=== PATIENT | male | born 1985 | race African-American/Black ===

== ENCOUNTER 2018-02-27 14:38 | Inpatient (IN) | payer BC ==
[2018-02-27 17:48] VITALS: BMI 28.0
--- NOTE | 2018-02-27 21:22 | HP ---
Admission ROS [facility] - [facility] Chief Complaint: SEEKING INPATIENT REHAB SERVICES FOR CRACK/COCAINE DEPENDENCE Allergies/Adverse Reactions: Allergies Allergy/AdvReac Type Severity Reaction Status Date / Time No Known Allergies Allergy Verified 02/27/18 18:34 History of Present Illness: 32 Y.O. MALE WITH LONG HX/O CRACK/COCAINE DEPENDENCE HERE FOR REHAB SERVICES. CLIENT WAS REFERRED BY HIS OUTPATIENT PROGRAM, [facility]. DENIES ANY SIGNIFICANT PERIOD OF CLEAN TIME. REPORT PMHX OF SEIZURE D/O, SCHIZOPHRENIC D/O. DENIES ANY PAST/PRESENT SI/HI/AV HALLUCINATIONS Exam Limitations: No Limitations - Ebola screening Have you traveled outside of the country in the last 21 days: No (N) Have you had contact with anyone from an Ebola affected area: No Have you been sick,other than usual withdrawal symptoms: No Do you have a fever: No - Review of Systems Constitutional: No Symptoms Reported EENT: reports: No Symptoms Reported Respiratory: reports: No Symptoms reported Cardiac: reports: No Symptoms Reported GI: reports: No Symptoms Reported : reports: No Symptoms Reported Musculoskeletal: reports: No Symptoms Reported Integumentary: reports: No Symptoms Reported Neuro: reports: Seizure Endocrine: reports: No Symptoms Reported Hematology: reports: No Symptoms Reported Psychiatric: reports: Depressed, other (SCHIZOPHRENIA) Other Systems: Reviewed and Negative Patient History - Patient Medical History Hx Anemia: No Hx Asthma: No Hx Chronic Obstructive Pulmonary Disease (COPD): No Hx Cancer: No Hx Cardiac Disorders: No Hx Congestive Heart Failure: No Hx Hypertension: No Hx Hypercholesterolemia: No Hx Pacemaker: No HX Cerebrovascular Accident: No Hx Seizures: Yes (ON MEDS) Hx Dementia: No Hx Diabetes: No Hx Gastrointestinal Disorders: No Hx Liver Disease: No Hx Genitourinary Disorders: No Hx Sexually Transmitted Disorders: No Hx Renal Disease (ESRD): No Hx Thyroid Disease: No Hx Human Immunodeficiency Virus (HIV): No Hx Hepatitis C: No Hx Depression: No Hx Suicide Attempt: No Hx Bipolar Disorder: No Hx Schizophrenia: Yes Other Medical History: DENIES - Patient Surgical History Past Surgical History: No - PPD History Previous Implant?: Yes Documented Results: Negative w/proof Implanted On Prior [facility] Admission?: No PPD to be Administered?: Yes - Smoking Cessation Smoking history: Current every day smoker Have you smoked in the past 12 months: Yes Aproximately how many cigarettes per day: 4 Cigars Per Day: 0 Hx Chewing Tobacco Use: No Initiated information on smoking cessation: Yes 'Breaking Loose' booklet given: 02/27/18 - Substance & Tx. History Hx Alcohol Use: No Hx Substance Use: No Substance Use Type: Cocaine Hx Substance Use Treatment: No - Substances Abused CRACK/COCAINE Route: Smoking Frequency: Daily Amount used: $60 Age of first use: 31 Date of Last Use: 02/25/18 Family Disease History - Family Disease History Family Disease History: Respiratory: Father (ASTHMA, COCAINE DEP) Admission Physical Exam [facility] - Vital Signs Vital Signs: Vital Signs - 24 hr 02/27/18 17:47 Temperature 98.6 F Pulse Rate 84 Respiratory 18 Rate Blood Pressure 129/69 - Physical General Appearance: Yes: No Apparent Distress, Appropriately Dressed HEENTM: Yes: EOMI, Normocephalic, Normal Voice, RULA, Pharynx Normal Respiratory: Yes: Chest Non-Tender, Lungs Clear, Normal Breath Sounds, No Respiratory Distress, No Accessory Muscle Use Neck: Yes: No masses,lesions,Nodules, Supple, Trachea in good position Breast: Yes: Breast Exam Deferred Cardiology: Yes: Regular Rhythm, Regular Rate, S1, S2 Abdominal: Yes: Normal Bowel Sounds, Non Tender, Flat, Soft Genitourinary: Yes: Within Normal Limits Back: Yes: Normal Inspection Musculoskeletal: Yes: full range of Motion, Gait Steady Extremities: Yes: Normal Capillary Refill, Normal Inspection, Normal Range of Motion, Non-Tender 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 NML intact, Fully Oriented, Alert, Motor Strength 5/5 Integumentary: Yes: Normal Color, Dry, Warm Lymphatic: Yes: Within Normal Limits - Diagnostic (1) Cocaine dependence, uncomplicated Current Visit: Yes Status: Chronic (2) Nicotine dependence Current Visit: Yes Status: Chronic Qualifiers: Nicotine product type: cigarettes Substance use status: uncomplicated Qualified Code(s): F17.210 - Nicotine dependence, cigarettes, uncomplicated (3) Seizure disorder Current Visit: Yes Status: Chronic (4) Depressed mood Current Visit: Yes Status: Suspected Cleared for Admission [facility] - Detox or Rehab Detox Regimen/Protocol: Not Applicable Claeared for Rehab Admission: Yes [facility] Breath Alcohol Content Breath Alcohol Content: 0 Urine Drug Screen - Results Drug Screen Negative: No Urine Drug Screen Results: JAIME-Cocaine, BAR-Barbiturates, TCA-Tricyclic Antidepress Inpatient Rehab Admission - Initial Determination Are CD services needed?: Yes Free of communicable disease: Yes Not in need of hospitalization: Yes - Rehab Admission Criteria Previous failed treatment: Yes Poor recovery environment: Yes Comorbidities: Yes Lacks judgement: Yes Patient is meeting Inpatient Rehab admission criteria:: Yes
[2018-02-27] MEDS ORDERED: guaiFENesin/D-METHORPHAN HB 10 ML UNIT-DOSE CUPS PO PRN (21:34)
[2018-02-27] MEDS ORDERED: NICOTINE POLACRILEX 2 MG GUM BC PRN (21:34)
[2018-02-27] MEDS ORDERED: MAG HYDROX/AL HYDROX/SIMETH 30 ML UNIT-DOSE CUP PO PRN (21:34)
[2018-02-27] MEDS ORDERED: MAGNESIUM CITRATE 300 ML BOTTLE PO PRN (21:34)
[2018-02-27] MEDS ORDERED: P-EPHED 60MG/TRIPROLIDI 2.5MG TABLET PO PRN (21:34)
[2018-02-27] MEDS ORDERED: ACETAMINOPHEN 325 MG TABLET (FP) PO PRN (21:34)
[2018-02-27] MEDS ORDERED: LOPERAMIDE HCL 2 MG CAPSULE PO PRN (21:34)
[2018-02-27] MEDS ORDERED: MENTHOL/PHENOL 1 EACH UD MM PRN (21:34)
[2018-02-27] MEDS ORDERED: hydrOXYzine PAMOATE 50 MG CAPSULE (FP) PO PRN (21:34)
[2018-02-27] MEDS ORDERED: MAGNESIUM HYDROX 2400MG/30ML ORAL SUSPENSION 30 ML CUP PO PRN (21:34)
[2018-02-27] MEDS ORDERED: IBUPROFEN 400 MG TABLET (FP) PO PRN (21:34)
[2018-02-27] MEDS ORDERED: MELATONIN 5 MG TABLETS PO PRN (22:00)
[2018-02-27] MEDS ORDERED: TUBERCULIN PPD 5 TU/0.1ML VIAL ID ONE (23:27)
[2018-02-27] MEDS: carBAMazepine 100 MG TAB.CHEW PO SCH (23:39)
[2018-02-27] MEDS: PHENYTOIN NA EXTENDED 100 MG CAPSULE (FP) PO SCH (23:39)
[2018-02-27] MEDS: THIAMINE HCL 100 MG TABLET (FP) PO SCH (23:39)
[2018-02-27] MEDS: levETIRAcetam XR 500 MG TAB PO SCH (23:39)
[2018-02-28] MEDS: PHENYTOIN NA EXTENDED 100 MG CAPSULE (FP) PO SCH ×3 (07:05→21:35)
[2018-02-28] MEDS: risperiDONE 2 MG TABLET PO SCH ×2 (10:17→21:35)
[2018-02-28] MEDS: PRENATAL VITAMINS W/ FOLIC ACID TABLET (FP) PO SCH (10:17)
[2018-02-28] MEDS: carBAMazepine 100 MG TAB.CHEW PO SCH ×2 (10:18→21:35)
[2018-02-28] MEDS: levETIRAcetam XR 500 MG TAB PO SCH ×2 (10:18→21:35)
[2018-02-28] MEDS: NICOTINE 14 MG/24 HOURS TOPICAL PATCH TD SCH (10:19)
[2018-02-28] MEDS ORDERED: PNEUMOCOCCAL 23 VACCINE 0.5 ML VIAL IM ONE (12:00)
[2018-02-28] MEDS ORDERED: PNEUMOC 13-VAL CONJ-DIP CRM/PF 0.5 ML DISP.SYRIN IM ONE (12:00)
[2018-02-28] MEDS ORDERED: FLU VACCINE QUAD 60 MCG/0.5 ML (MDV 17-18) IM ONE (12:00)
--- NOTE | 2018-02-28 12:17 | HP ---
Psychiatrist Admission - Data Date of interview: 02/28/18 Admission source: [facility] Identifying data: This is the first 5N inpatient rehabilitation admission for this 32 year old AA male father of one, domiciled residing in [place] and supported on PA. Medical History: history of seizures with a last episode weeks ago and is on medication, smokes 4 cigarettes a day. Psychiatric History: Patient is poor historina, he reports history of Schizophrenia and under the care of outpatient program [facility], currently on Risperdal 2 mg po BID. Patient does not gives any details, he reports he is tired and did not sleep well. Vital Signs: Vital Signs - 24 hr 02/27/18 02/27/18 02/28/18 17:47 23:16 06:54 Temperature 98.6 F 97.7 F 97.8 F Pulse Rate 84 73 77 Respiratory 18 18 16 Rate Blood Pressure 129/69 114/71 129/79 Allergies/Adverse Reactions: Allergies Allergy/AdvReac Type Severity Reaction Status Date / Time No Known Allergies Allergy Verified 02/27/18 18:34 Date of last physical exam: 02/27/18 Concur with the findings of this exam: Yes - Substance Abuse/Tx History Hx Alcohol Use: No Hx Substance Use: Yes Substance Use Type: Cocaine ($60 daily ) Hx Substance Use Treatment: Yes Mental Status Exam - Mental Status Exam Alert and Oriented to: Time, Place, Person Cognitive Function: Good Patient Appearance: Well Groomed Mood: Apathetic ( ), Sad Affect: Mood Congruent, Blunted, Constricted Patient Behavior: Fatigued, Cooperative Speech Pattern: Appropriate Voice Loudness: Normal Thought Process: Intact, Goal Oriented Thought Disorder: Not Present Hallucinations: Denies Suicidal Ideation: Denies Homicidal Ideation: Denies Insight/Judgement: Fair Sleep: Fair Appetite: Fair Muscle strength/Tone: Normal Gait/Station: Normal Psychiatric Findings - Problem List ([place] 1, 2,3) (1) Cocaine dependence Current Visit: Yes Status: Acute (2) Schizophrenia Current Visit: Yes Status: Acute (3) Nicotine dependence Current Visit: Yes Status: Chronic Qualifiers: Nicotine product type: cigarettes Substance use status: uncomplicated Qualified Code(s): F17.210 - Nicotine dependence, cigarettes, uncomplicated - Initial Treatment Plan Initial Treatment Plan: will continue his current medications, monitor progress as needed.
--- NOTE | 2018-02-28 15:04 | EKG ---
Test Reason : Blood Pressure : / mmHG Vent. Rate : 055 BPM Atrial Rate : 055 BPM P-R Int : 232 ms QRS Dur : 090 ms QT Int : 408 ms P-R-T Axes : 077 047 037 degrees QTc Int : 390 ms SINUS BRADYCARDIA WITH SINUS ARRHYTHMIA WITH 1ST DEGREE A-V BLOCK OTHERWISE NORMAL ECG NO PREVIOUS ECGS AVAILABLE Confirmed by STANISLAW MENDOZA MD ([id number]) on 02/28/2018 3:04:13 PM Referred By: Confirmed By:STANISLAW MENDOZA MD
[2018-02-28 16:04] LABS: HEMATOCRIT 42.6 % (35.4-49); HEMOGLOBIN 14.2 GM/dL (11.7-16.9); MCH 30.9 pg (25.7-33.7); MCHC 33.4 g/dl (32.0-35.9); MEAN CELL VOLUME 92.5 fl (80-96); MEAN PLT VOLUME 10.1 fl (7.5-11.1); PLATELET COUNT 165 K/MM3 (134-434); RDW 12.4 % (11.9-15.9); WHITE BLOOD COUNT 5.3 K/mm3 (4.0-10.0)
[2018-02-28 16:35] LABS: CHLORIDE 105 mmol/L (98-107); SODIUM 141 mmol/L (136-145)
[2018-02-28 16:57] LABS: ALBUMIN 3.4 g/dl (3.4-5.0); ALK PHOS 90 U/L (45-117); ANION GAP 9 (8-16); BILIRUBIN,TOTAL 1.6 mg/dL (0.2-1.0); BLOOD UREA NITROGEN 10 mg/dL (7-18); CALCIUM 7.8 mg/dL (8.5-10.1); CO2 27 mmol/L (21-32); CREATININE 1.3 mg/dL (0.7-1.3); GLUCOSE,RANDOM 95 mg/dL (74-106); SGPT/ALT 23 U/L (12-78); TOT PROT 6.6 g/dl (6.4-8.2)
[2018-02-28 17:03] LABS: CARBAMAZEPINE (TEGRETOL) 2.3 ug/ml (4.0-12.0); PHENYTOIN (DILANTIN) 6.3 ug/ml (10.0-20.0)
[2018-02-28 18:20] LABS: URINE APPEARANCE TURBID; URINE BILIRUBIN NEGATIVE (<2.0 mg/dL); URINE COLOR AMBER; URINE GLUCOSE (UA) NEGATIVE (NEGATIVE); URINE KETONE NEGATIVE (NEGATIVE); URINE LEUK ESTERASE NEGATIVE (NEGATIVE); URINE NITRITE NEGATIVE (NEGATIVE); URINE PROTEIN NEGATIVE (NEGATIVE); URINE UROBILINOGEN NEGATIVE mg/dL (0.2-1.0)
[2018-02-28 19:06] LABS: POTASSIUM 4.1 mmol/L (3.5-5.1); SGOT/AST 25 U/L (15-37)
[2018-02-28] MEDS: THIAMINE HCL 100 MG TABLET (FP) PO SCH (21:35)
[2018-03-01] MEDS: PHENYTOIN NA EXTENDED 100 MG CAPSULE (FP) PO SCH ×3 (06:23→21:31)
[2018-03-01] MEDS: carBAMazepine 100 MG TAB.CHEW PO SCH ×2 (10:30→21:31)
[2018-03-01] MEDS: PRENATAL VITAMINS W/ FOLIC ACID TABLET (FP) PO SCH (10:30)
[2018-03-01] MEDS: NICOTINE 14 MG/24 HOURS TOPICAL PATCH TD SCH (10:30)
[2018-03-01] MEDS: risperiDONE 2 MG TABLET PO SCH ×2 (10:30→21:31)
[2018-03-01] MEDS: levETIRAcetam XR 500 MG TAB PO SCH ×2 (10:30→21:32)
--- NOTE | 2018-03-01 16:23 | EKG ---
Test Reason : Blood Pressure : / mmHG Vent. Rate : 058 BPM Atrial Rate : 058 BPM P-R Int : 202 ms QRS Dur : 086 ms QT Int : 388 ms P-R-T Axes : 070 043 031 degrees QTc Int : 380 ms SINUS BRADYCARDIA OTHERWISE NORMAL ECG WHEN COMPARED WITH ECG OF 28-FEB-2018 07:43, [place] INTERVAL HAS DECREASED Confirmed by PREMA SWANSON MD ([id number]) on 03/01/2018 4:23:39 PM Referred By: Aileen GARCIA Confirmed By:PREMA SWANSON MD
[2018-03-01] MEDS: THIAMINE HCL 100 MG TABLET (FP) PO SCH (21:31)
[2018-03-02] MEDS: PHENYTOIN NA EXTENDED 100 MG CAPSULE (FP) PO SCH ×3 (06:42→21:31)
[2018-03-02] MEDS: levETIRAcetam XR 500 MG TAB PO SCH ×2 (10:05→21:31)
[2018-03-02] MEDS: PRENATAL VITAMINS W/ FOLIC ACID TABLET (FP) PO SCH (10:05)
[2018-03-02] MEDS: risperiDONE 2 MG TABLET PO SCH ×2 (10:05→21:31)
[2018-03-02] MEDS: NICOTINE 14 MG/24 HOURS TOPICAL PATCH TD SCH (10:06)
[2018-03-02] MEDS: carBAMazepine 100 MG TAB.CHEW PO SCH ×2 (10:07→21:31)
--- NOTE | 2018-03-02 15:34 | PN ---
S Progress Note Note: Notified by RN Tegretol level 2.3 (low). Will continue same dose of Tegretol and repeat level 03/04/18. Continue to monitor.
[2018-03-02] MEDS: THIAMINE HCL 100 MG TABLET (FP) PO SCH (21:31)
[2018-03-03] MEDS: PHENYTOIN NA EXTENDED 100 MG CAPSULE (FP) PO SCH ×3 (06:38→21:50)
[2018-03-03] MEDS: risperiDONE 2 MG TABLET PO SCH ×2 (10:03→21:50)
[2018-03-03] MEDS: levETIRAcetam XR 500 MG TAB PO SCH ×2 (10:03→21:51)
[2018-03-03] MEDS: carBAMazepine 100 MG TAB.CHEW PO SCH ×2 (10:03→21:50)
[2018-03-03] MEDS: PRENATAL VITAMINS W/ FOLIC ACID TABLET (FP) PO SCH (10:03)
[2018-03-03] MEDS: NICOTINE 14 MG/24 HOURS TOPICAL PATCH TD SCH (10:04)
[2018-03-03] MEDS: THIAMINE HCL 100 MG TABLET (FP) PO SCH (21:50)
[2018-03-04] MEDS: PHENYTOIN NA EXTENDED 100 MG CAPSULE (FP) PO SCH ×3 (06:35→21:36)
[2018-03-04] MEDS: risperiDONE 2 MG TABLET PO SCH ×2 (10:06→21:36)
[2018-03-04] MEDS: PRENATAL VITAMINS W/ FOLIC ACID TABLET (FP) PO SCH (10:06)
[2018-03-04] MEDS: NICOTINE 14 MG/24 HOURS TOPICAL PATCH TD SCH (10:06)
[2018-03-04] MEDS: carBAMazepine 100 MG TAB.CHEW PO SCH ×2 (10:06→21:36)
[2018-03-04] MEDS: levETIRAcetam XR 500 MG TAB PO SCH ×2 (10:07→21:37)
[2018-03-04] MEDS: THIAMINE HCL 100 MG TABLET (FP) PO SCH (21:36)
[2018-03-05] MEDS: PHENYTOIN NA EXTENDED 100 MG CAPSULE (FP) PO SCH ×3 (06:20→21:33)
[2018-03-05] MEDS: NICOTINE 14 MG/24 HOURS TOPICAL PATCH TD SCH (10:22)
[2018-03-05] MEDS: levETIRAcetam XR 500 MG TAB PO SCH ×2 (10:22→21:33)
[2018-03-05] MEDS: risperiDONE 2 MG TABLET PO SCH ×2 (10:23→21:33)
[2018-03-05] MEDS: carBAMazepine 100 MG TAB.CHEW PO SCH ×2 (10:23→22:10)
[2018-03-05] MEDS: PRENATAL VITAMINS W/ FOLIC ACID TABLET (FP) PO SCH (10:23)
--- NOTE | 2018-03-05 11:36 | PN ---
[facility] Progress Note Note: Tegretol level increased to 3.4. Mildly subtherapeutic. Will continue same dose and repeat level 03/09/18.
[2018-03-05] MEDS: THIAMINE HCL 100 MG TABLET (FP) PO SCH (21:33)
[2018-03-06] MEDS: PHENYTOIN NA EXTENDED 100 MG CAPSULE (FP) PO SCH ×3 (07:08→21:40)
[2018-03-06] MEDS: carBAMazepine 100 MG TAB.CHEW PO SCH ×2 (10:22→21:40)
[2018-03-06] MEDS: PRENATAL VITAMINS W/ FOLIC ACID TABLET (FP) PO SCH (10:22)
[2018-03-06] MEDS: levETIRAcetam XR 500 MG TAB PO SCH ×2 (10:22→21:41)
[2018-03-06] MEDS: risperiDONE 2 MG TABLET PO SCH ×2 (10:22→21:40)
[2018-03-06] MEDS: NICOTINE 14 MG/24 HOURS TOPICAL PATCH TD SCH (10:23)
[2018-03-06] MEDS: THIAMINE HCL 100 MG TABLET (FP) PO SCH (21:40)
[2018-03-07] MEDS: PHENYTOIN NA EXTENDED 100 MG CAPSULE (FP) PO SCH ×3 (08:03→21:30)
[2018-03-07] MEDS: levETIRAcetam XR 500 MG TAB PO SCH ×2 (10:31→21:31)
[2018-03-07] MEDS: PRENATAL VITAMINS W/ FOLIC ACID TABLET (FP) PO SCH (10:32)
[2018-03-07] MEDS: risperiDONE 2 MG TABLET PO SCH ×2 (10:32→21:30)
[2018-03-07] MEDS: carBAMazepine 100 MG TAB.CHEW PO SCH ×2 (10:32→21:30)
[2018-03-07] MEDS: NICOTINE 14 MG/24 HOURS TOPICAL PATCH TD SCH (10:32)
[2018-03-07] MEDS: THIAMINE HCL 100 MG TABLET (FP) PO SCH (21:30)
[2018-03-08] MEDS: PHENYTOIN NA EXTENDED 100 MG CAPSULE (FP) PO SCH ×3 (06:49→21:38)
[2018-03-08] MEDS: carBAMazepine 100 MG TAB.CHEW PO SCH ×2 (10:28→21:38)
[2018-03-08] MEDS: PRENATAL VITAMINS W/ FOLIC ACID TABLET (FP) PO SCH (10:28)
[2018-03-08] MEDS: NICOTINE 14 MG/24 HOURS TOPICAL PATCH TD SCH (10:28)
[2018-03-08] MEDS: risperiDONE 2 MG TABLET PO SCH ×2 (10:28→21:38)
[2018-03-08] MEDS: levETIRAcetam XR 500 MG TAB PO SCH ×2 (10:28→21:38)
[2018-03-08] MEDS: THIAMINE HCL 100 MG TABLET (FP) PO SCH (21:38)
[2018-03-09] MEDS: PHENYTOIN NA EXTENDED 100 MG CAPSULE (FP) PO SCH ×3 (06:29→21:28)
[2018-03-09] MEDS: levETIRAcetam XR 500 MG TAB PO SCH ×2 (10:09→21:28)
[2018-03-09] MEDS: risperiDONE 2 MG TABLET PO SCH ×2 (10:09→21:28)
[2018-03-09] MEDS: NICOTINE 14 MG/24 HOURS TOPICAL PATCH TD SCH (10:09)
[2018-03-09] MEDS: carBAMazepine 100 MG TAB.CHEW PO SCH ×2 (10:09→21:28)
[2018-03-09] MEDS: PRENATAL VITAMINS W/ FOLIC ACID TABLET (FP) PO SCH (10:09)
[2018-03-09] MEDS: THIAMINE HCL 100 MG TABLET (FP) PO SCH (21:28)
[2018-03-10] MEDS ORDERED: PHENYTOIN NA EXTENDED 100 MG CAPSULE (FP) PO ONE ×2 (06:00→10:30)
[2018-03-10] MEDS: PHENYTOIN NA EXTENDED 100 MG CAPSULE (FP) PO SCH ×3 (07:10→21:41)
--- NOTE | 2018-03-10 07:48 | PN ---
[facility] Progress Note Note: I was called to evaluate patient with muscle cantractions and loss of consciousness. Lorazepam 2mg intramuscular and oxygen at 2 liters per minute via nasal cannula order. Dilantin 300mg loading dose and lab ordered. Patient is stable at this time. No injury noted or reported at this time. Fall and safety precaution maintained. Will continue to monitor patient.
[2018-03-10] MEDS: NICOTINE 14 MG/24 HOURS TOPICAL PATCH TD SCH (10:30)
[2018-03-10] MEDS: risperiDONE 2 MG TABLET PO SCH ×2 (10:30→21:41)
[2018-03-10] MEDS: carBAMazepine 100 MG TAB.CHEW PO SCH ×2 (10:30→21:41)
[2018-03-10] MEDS: PRENATAL VITAMINS W/ FOLIC ACID TABLET (FP) PO SCH (10:30)
[2018-03-10] MEDS: levETIRAcetam XR 500 MG TAB PO SCH ×2 (10:31→21:41)
[2018-03-10] MEDS: THIAMINE HCL 100 MG TABLET (FP) PO SCH (21:42)
[2018-03-11] MEDS: PHENYTOIN NA EXTENDED 100 MG CAPSULE (FP) PO SCH ×3 (06:43→21:29)
[2018-03-11] MEDS: levETIRAcetam XR 500 MG TAB PO SCH ×2 (10:08→21:29)
[2018-03-11] MEDS: risperiDONE 2 MG TABLET PO SCH ×2 (10:08→21:29)
[2018-03-11] MEDS: carBAMazepine 100 MG TAB.CHEW PO SCH ×2 (10:08→21:29)
[2018-03-11] MEDS: NICOTINE 14 MG/24 HOURS TOPICAL PATCH TD SCH (10:08)
[2018-03-11] MEDS: PRENATAL VITAMINS W/ FOLIC ACID TABLET (FP) PO SCH (10:08)
[2018-03-11] MEDS: THIAMINE HCL 100 MG TABLET (FP) PO SCH (21:29)
[2018-03-12] MEDS ORDERED: PHENYTOIN NA EXTENDED 100 MG CAPSULE (FP) PO ONE (02:10)
--- NOTE | 2018-03-12 02:18 | PN ---
[facility] Progress Note Note: I was informed by the nurse, Mr.Patient dilantin level is 9.9L. Patient is asymptomatic. Vital Signs Temperature 98.0 F 03/11/18 06:53 Pulse Rate 84 03/11/18 06:53 Respiratory Rate 18 03/12/18 00:30 Blood Pressure 106/77 03/11/18 06:53 O2 Sat by Pulse Oximetry (%) Abnormal Lab Results 03/11/18 08:45 Phenytoin 9.9 L D Action: Phenytoin 300mg capsule oral stat dose ordered. Labs: Carbamezapin, Dilantin and Leviteracetam ordered.
[2018-03-12] MEDS: PHENYTOIN NA EXTENDED 100 MG CAPSULE (FP) PO SCH ×3 (06:30→21:40)
[2018-03-12] MEDS: PRENATAL VITAMINS W/ FOLIC ACID TABLET (FP) PO SCH (09:54)
[2018-03-12] MEDS: NICOTINE 14 MG/24 HOURS TOPICAL PATCH TD SCH (09:54)
[2018-03-12] MEDS: carBAMazepine 100 MG TAB.CHEW PO SCH ×2 (09:54→21:40)
[2018-03-12] MEDS: risperiDONE 2 MG TABLET PO SCH ×2 (09:54→21:40)
[2018-03-12] MEDS: levETIRAcetam XR 500 MG TAB PO SCH ×2 (09:54→21:40)
--- NOTE | 2018-03-12 12:26 | PN ---
S Progress Note Note: Dilantin, Tegretol and keppra lab pending. seizure precautions continue to monitor
[2018-03-12] MEDS: THIAMINE HCL 100 MG TABLET (FP) PO SCH (21:41)
[2018-03-13] MEDS: PHENYTOIN NA EXTENDED 100 MG CAPSULE (FP) PO SCH ×3 (06:08→21:45)
[2018-03-13] MEDS: NICOTINE 14 MG/24 HOURS TOPICAL PATCH TD SCH (10:25)
[2018-03-13] MEDS: PRENATAL VITAMINS W/ FOLIC ACID TABLET (FP) PO SCH (10:25)
[2018-03-13] MEDS: risperiDONE 2 MG TABLET PO SCH ×2 (10:25→21:45)
[2018-03-13] MEDS: levETIRAcetam XR 500 MG TAB PO SCH ×2 (10:25→21:45)
[2018-03-13] MEDS: carBAMazepine 100 MG TAB.CHEW PO SCH ×2 (10:25→21:45)
[2018-03-13] MEDS: THIAMINE HCL 100 MG TABLET (FP) PO SCH (21:45)
--- NOTE | 2018-03-13 23:54 | PN ---
[facility] Progress Note Note: Laboratory 03/09/18 03/11/18 03/13/18 07:30 08:45 07:45 Phenytoin 9.9 ug/ml L D ug/ml (10.0-20.0) Carbamazepine 3.7 ug/ml L ug/ml 3.2 ug/ml L* ug/ml (4.0-12.0) (4.0-12.0) 03/13/18 03/13/18 07:45 10:00 Phenytoin 11.5 ug/ml D ug/ml (10.0-20.0) Carbamazepine 4.2 ug/ml ug/ml (4.0-12.0) Tegretol within therapeutic range. Patient currently stable. Continue current Tegretol dose.
[2018-03-14] MEDS: PHENYTOIN NA EXTENDED 100 MG CAPSULE (FP) PO SCH (06:00)
[2018-03-14 07:15] VITALS: BP 119/74; PULSE 78; TEMP 98.3
--- NOTE | 2018-03-14 09:50 | PN ---
Psychiatric Progress Note Vital Signs: Vital Signs Period Temp Pulse Resp BP Sys/Islas Pulse Ox Last 24 Hr 98.3 F 78 18-18 119/74 Date of Session: 03/14/18 Chief Complaint:: Discharge visit HPI: Patient addressed Cocaine dependence comorbid with Substance induced mood disorder,Schizophrenia. ROS: SIGNIFCANT FOR SEIZURE DISORDER. Current Medications: Active Medications Generic Name Dose Route Start Last Admin Trade Name Freq PRN Reason Stop Dose Admin Acetaminophen 650 mg 02/27/18 21:34 Tylenol - PO Q4H PRN FEVER Al Hydroxide/Mg Hydroxide 30 ml 02/27/18 21:34 Mylanta Oral Suspension - PO Q6H PRN DYSPEPSIA Carbamazepine 200 mg 02/27/18 22:00 03/13/18 21:45 Tegretol - PO 200 mg BID TRIP Administration Eucalyptus/Menthol/Phenol/Sorbitol 1 each 02/27/18 21:34 Cepastat Lozenge - MM Q4H PRN SORE THROAT Guaifenesin 10 ml 02/27/18 21:34 Robitussin Dm - PO Q6H PRN COUGH Hydroxyzine Pamoate 50 mg 02/27/18 21:34 Vistaril - PO Q4H PRN AGITATION Ibuprofen 400 mg 02/27/18 21:34 Motrin - PO Q6H PRN Pain level 4-6 Levetiracetam 500 mg 02/27/18 22:00 03/13/18 21:45 Keppra Xr - PO 500 mg BID TRIP Administration Loperamide HCl 4 mg 02/27/18 21:34 Imodium - PO Q6H PRN DIARRHEA Magnesium Citrate 300 ml 02/27/18 21:34 Citroma - PO Q48H PRN CONSTIPATION Magnesium Hydroxide 30 ml 02/27/18 21:34 Milk Of Magnesia - PO DAILY PRN CONSTIPATION Melatonin 5 mg 02/27/18 22:00 Melatonin PO HS PRN INSOMNIA Nicotine 14 mg 02/28/18 10:00 03/13/18 10:25 Nicoderm Patch - TD Not Given DAILY TRIP Nicotine Polacrilex 2 mg 02/27/18 21:34 Nicorette Gum - BC Q2H PRN NICOTINE REPLACEMENT RX Phenytoin Sodium 100 mg 03/12/18 14:00 03/14/18 06:00 Dilantin - PO 100 mg TID TRIP Administration Multivit/Folic Acid/Iron 1 tab 02/28/18 10:00 03/13/18 10:25 Vitamins ([facility]) - PO 1 tab DAILY TRIP Administration Pseudoephedrine/Triprolidine 1 combo 02/27/18 21:34 Actifed - PO TID PRN NASAL CONGESTION Risperidone 2 mg 02/28/18 10:00 03/13/18 21:45 Risperdal - PO 2 mg BID TRIP Administration Thiamine HCl 100 mg 02/27/18 22:00 03/13/18 21:45 Vitamin B1 - PO 100 mg HS TRIP Administration Current Side Effect: No Lab tests ordered: No Lab tests reviewed: Yes Provider note:: Patient completed this program today.He has met his treatment goals and will continue to address his issues on outpatient basis.Patient reports finding that current medications:Risperidone 2 mg po bid help to cope with mood instability.Scripts for 30 days provided. relapse prevention has been discussed with the patient . She is stable for discharge today. Total face to face time:: 30 Mental Status Exam - Mental Status Exam Alert and Oriented to: Time, Place, Person Cognitive Function: Grossly Intact Patient Appearance: Well Groomed Affect: Mood Congruent Patient Behavior: Appropriate, Cooperative Speech Pattern: Clear Voice Loudness: Normal Thought Process: Goal Oriented Thought Disorder: Not Present Hallucinations: Denies Suicidal Ideation: Denies Homicidal Ideation: Denies Insight/Judgement: Fair Sleep: Fair Appetite: Fair Muscle strength/Tone: Normal Gait/Station: Normal Psychiatric Treatment Plan - Problem List (3) Nicotine dependence Qualifiers: Nicotine product type: cigarettes Substance use status: uncomplicated Qualified Code(s): F17.210 - Nicotine dependence, cigarettes, uncomplicated
[2018-03-14] MEDS: NICOTINE 14 MG/24 HOURS TOPICAL PATCH TD SCH (10:49)
[2018-03-14] MEDS: levETIRAcetam XR 500 MG TAB PO SCH (10:49)
[2018-03-14] MEDS: carBAMazepine 100 MG TAB.CHEW PO SCH (10:50)
[2018-03-14] MEDS: risperiDONE 2 MG TABLET PO SCH (10:50)
[2018-03-14] MEDS: PRENATAL VITAMINS W/ FOLIC ACID TABLET (FP) PO SCH (10:50)
== END 2018-03-14 09:30 | disposition home or self-care (01) | DRG 772 ==
LOC: YASAS 14:38 → EDBD 14:38 → Y5N 20:13 → EDBD 20:13
PROVIDERS: ADMIT Psychiatry & Neurology Psychiatry; ATTEND Psychiatry & Neurology Psychiatry
PROC: HZ42ZZZ Group Counseling for Substance Abuse Treatment, Cognitive-Behavioral (ICD-10-PCS; principal; 2018-02-27)
DX: F14.20 Cocaine dependence, uncomplicated (principal); F17.210 Nicotine dependence, cigarettes, uncomplicated; F20.9 Schizophrenia, unspecified; F32.9 Major depressive disorder, single episode, unspecified; G40.909 Epilepsy, unspecified, not intractable, without status epilepticus
CPT/HCPCS: 36415; 80053; 80156; 80185; 81003; 85027; 86593; 87389; 93005; 93010